=== PATIENT | female | born 1950 | race Caucasian/White ===

== ENCOUNTER 2024-06-08 12:36 | Day surgery (SDC) | payer OTHER ==
[~2024-06-08 12:36] MED LIST: ALBUTEROL; BRIM5DRO6 RIGHTEYE; DORZ10DR9 EACHEYE; NITR50CA PO; OMEP20CA16 PO
[2024-06-08 13:09] VITALS: BP 147/84; PULSE 68; RESP 15; TEMP 98.3
[2024-06-08] MEDS ORDERED: LIDOcaine 1%/PF 5ML 10 MG/ML VIAL ONE (13:11)
[2024-06-08] MEDS ORDERED: propofol inj 20 ML IV ONE (13:12)
[2024-06-08 13:35] VITALS: BP 113/72; PULSE 63; RESP 21; O2SAT 97
[2024-06-08 13:45] VITALS: BP 123/85; PULSE 60; RESP 22; O2SAT 96
[2024-06-08 13:55] VITALS: BP 133/82; PULSE 60; RESP 24; O2SAT 97
[2024-06-08 14:05] VITALS: BP 136/73; PULSE 60; RESP 18; O2SAT 98
== END 2024-06-08 14:10 | disposition home or self-care (01) ==
LOC: GI LAB 12:36
PROVIDERS: ATTEND Internal Medicine Gastroenterology
DX: R19.4 Change in bowel habit (principal); D12.4 Benign neoplasm of descending colon; K57.30 Diverticulosis of large intestine without perforation or abscess without bleeding; K64.8 Other hemorrhoids; J45.909 Unspecified asthma, uncomplicated; Z87.440 Personal history of urinary (tract) infections; Z79.899 Other long term (current) drug therapy; Z88.8 Allergy status to other drugs, medicaments and biological substances
CPT/HCPCS: 45380; 45381; 45385; A4620; C1889; J2704; J3490; J7030; Z7512